=== PATIENT | male | born 1960 | race Caucasian/White ===

== ENCOUNTER 2019-11-30 04:41 | Emergency (ER) | payer BC ==
[~2019-11-30] VITALS: Ht 172.7 cm; Wt 79.4 kg
[~2019-11-30 04:41] MED LIST: Adipex-P37.5 MG PO; CELE200 PO; LEVSOD150 PO; OXYACE5T PO; PROB500 PO; VARE1 PO
[2019-11-30 06:30] LABS: Source, Urine Voided
[2019-11-30 06:33] LABS: Bilirubin, Urine Neg (Neg); Blood, Urine Neg (Neg); Glucose Qualitative, Urine Neg (Neg); Ketones, Urine Neg (Neg); Leukocyte Esterase, Urine Neg (Neg); Nitrite, Urine Neg (Neg); Protein, Urine Neg (Neg); Specific Gravity, Urine 1.025 (1.003-1.022); Urobilinogen, Urine NORM (Normal)
[2019-11-30 06:34] LABS: Appearance, Urine Clear (Clear); Color, Urine Yellow (P-Yellow)
[2019-11-30] MEDS ORDERED: HYDR1TAB94 PO (06:55)
== END 2019-11-30 07:03 | disposition home or self-care (01) ==
LOC: ER 04:41
PROVIDERS: Emergency Medicine
DX: M54.5 Low back pain (principal); R10.9 Unspecified abdominal pain; Z88.0 Allergy status to penicillin; E03.9 Hypothyroidism, unspecified; Z87.891 Personal history of nicotine dependence; Z79.899 Other long term (current) drug therapy
CPT/HCPCS: 81003; 96372; 99283-25; J1885; J2270

== ENCOUNTER 2022-08-05 11:56 | Day surgery (SDC) | payer BC ==
[~2022-08-05] VITALS: Ht 172.7 cm; Wt 103.6 kg
[~2022-08-05 11:56] MED LIST changes: +HYDR1TAB94 PO
== END 2022-08-05 14:20 | disposition home or self-care (01) ==
LOC: ORSCSDS 11:56
PROVIDERS: Internal Medicine Gastroenterology
PROC: 0DBL8ZX Excision of Transverse Colon, Via Natural or Artificial Opening Endoscopic, Diagnostic (ICD-10-PCS; principal; 2022-08-05 13:15)
PROC: 0DBM8ZX Excision of Descending Colon, Via Natural or Artificial Opening Endoscopic, Diagnostic (ICD-10-PCS; principal; 2022-08-05 13:15)
PROC: 0DBN8ZX Excision of Sigmoid Colon, Via Natural or Artificial Opening Endoscopic, Diagnostic (ICD-10-PCS; principal; 2022-08-05 13:15)
PROC: 0DBK8ZX Excision of Ascending Colon, Via Natural or Artificial Opening Endoscopic, Diagnostic (ICD-10-PCS; principal; 2022-08-05 13:15)
DX: Z12.11 Encounter for screening for malignant neoplasm of colon (principal); D12.2 Benign neoplasm of ascending colon; D12.3 Benign neoplasm of transverse colon; K63.5 Polyp of colon; K64.4 Residual hemorrhoidal skin tags; K57.30 Diverticulosis of large intestine without perforation or abscess without bleeding; E03.9 Hypothyroidism, unspecified; I10 Essential (primary) hypertension; G47.33 Obstructive sleep apnea (adult) (pediatric); E66.9 Obesity, unspecified; Z86.010 Personal history of colon polyps
CPT/HCPCS: 88305; J2704; J7120

== ENCOUNTER 2023-12-14 04:33 | Emergency (ER) | payer OTHER ==
[~2023-12-14] VITALS: Ht 170.2 cm; Wt 97.5 kg
[2023-12-14 05:11] VITALS: BP 178/67
[2023-12-14] MEDS ORDERED: Ketorolac Tromethamine 30mg Vial IV ONE (06:00)
[2023-12-14] MEDS ORDERED: RX PP Nirmatrelvir/Ritonavir (Paxlovid) 1 CO-PACKAGE (30 Tabs) UD ONE (06:00)
[2023-12-14] MEDS ORDERED: NS 1,000 ML IV SCH (06:00)
== END 2023-12-14 06:19 | disposition home or self-care (01) ==
LOC: ER 04:33
DX: U07.1 COVID-19 (principal); E86.0 Dehydration; Z87.891 Personal history of nicotine dependence; E03.9 Hypothyroidism, unspecified
CPT/HCPCS: 99283; J1885; J7030